=== PATIENT | male | born 1965 | race African-American/Black ===

== ENCOUNTER 2018-09-20 06:02 | Inpatient (IN) | payer BC ==
[2018-09-09 12:07] VITALS: BMI 38.5
[2018-09-20] MEDS ORDERED: oxyCODONE HCL 10 MG SUSTAINED ACTING TABLET PO ONE (06:49)
[2018-09-20] MEDS ORDERED: TRANEXAMIC ACID 1000 MG/10 ML VIAL IVPUSH ONE (06:49)
[2018-09-20] MEDS ORDERED: CELECOXIB 200 MG CAPSULE PO ONE (06:49)
[2018-09-20] MEDS ORDERED: GABAPENTIN 300 MG CAPSULE (FP) PO ONE (06:49)
[2018-09-20] MEDS ORDERED: CEFAZOLIN 2 GM in DEXTROSE 5%-WATER - 50 ML IVPB ONE (06:49)
[2018-09-20] MEDS ORDERED: PANTOPRAZOLE 40 MG TABLET (FP) PO ONE (06:50)
[2018-09-20] MEDS ORDERED: BUPIVACAINE LIPOSOME/PF (EXPAREL) 266 MG/20 ML VIAL ONE (07:26)
[2018-09-20] MEDS ORDERED: MIDAZOLAM HCL 2 MG/2 ML SINGLE DOSE VIAL ONE ×2 (07:26→09:56)
[2018-09-20] MEDS ORDERED: ceFAZolin SODIUM 1 GM VIAL ONE ×2 (07:27→09:55)
[2018-09-20] MEDS ORDERED: VANCOMYCIN 1,000 MG VIAL (RESTRICTED TO ID ONLY) ONE (07:27)
--- NOTE | 2018-09-20 07:58 | HP ---
Admitting History and Physical - Admission Chief Complaint: right knee osteoarthritis x years History of Present Illness: 53 year old male presents in regard to his right knee. Longstanding history of right knee osteoarthritis. Patient complains of pain, limited ROM, difficulty ambulating and difficulty with activities of daily living. Patient has failed conservative treatment options including PO medications, injections, exercise programs and activity modifications. At this point, patient would like to proceed with surgical intervention - right total knee arthroplasty, MAKOplasty. - Smoking History Smoking history: Current some day smoker Have you smoked in the past 12 months: Yes - Alcohol/Substance Use Hx Alcohol Use: Yes (SOCIAL) Home Medications - Allergies Allergies/Adverse Reactions: Allergies Allergy/AdvReac Type Severity Reaction Status Date / Time Penicillins Allergy Intermediate Rash Verified 09/09/18 12:00 - Home Medications Home Medications: Ambulatory Orders Flaxseed/Omega3,6,9/Fatty Acid [Eql Flaxseed Oil 1,200 mg Sfgl] 1 tab PO DAILY 11/15/13 Multivitamin [Multivitamins] 1 each PO DAILY 11/15/13 Diclofenac Sodium 100 mg PO DAILY 09/09/18 Tramadol HCl 50 mg PO Q6H PRN 09/09/18 Review of Systems - Review of Systems Musculoskeletal: reports: Crepitus (right knee), Decreased ROM (right knee), Joint Pain (right knee), Joint Swelling (right knee) Physical Examination Vital Signs: Vital Signs Temperature 97.5 F L 09/20/18 06:31 Pulse Rate 87 09/20/18 06:31 Respiratory Rate 15 09/20/18 06:31 Blood Pressure 151/96 09/20/18 06:31 O2 Sat by Pulse Oximetry (%) Constitutional: Yes: Well Nourished, No Distress Eyes: Yes: Conjunctiva Clear HENT: Yes: Atraumatic, Normocephalic Neck: Yes: Supple Cardiovascular: Yes: Regular Rate and Rhythm Respiratory: Yes: Regular Gastrointestinal: Yes: Soft ...Rectal Exam: Yes: Deferred Musculoskeletal: Yes: Joint Stiffness (right knee), Joint Swelling (right knee) Assessment/Plan 53 year old male presents in regard to his right knee. Longstanding history of right knee osteoarthritis. Patient complains of pain, limited ROM, difficulty ambulating and difficulty with activities of daily living. Patient has failed conservative treatment options including PO medications, injections, exercise programs and activity modifications. At this point, patient would like to proceed with surgical intervention - right total knee arthroplasty, MAKOplasty. Pros, cons, risks, benefits and alternatives of a right total knee arthroplasty , MAKOplasty were discussed with the patient at length. Patient confirms his understanding and consents to proceed with a right total knee arthroplasty, MAKOplasty.
[2018-09-20] MEDS ORDERED: ROPIVICAINE 0.2%/MORPH PF/KETOROLAC - 51ML DISP.SYRINGE IA ONE ×2 (08:11→10:19)
[2018-09-20] MEDS ORDERED: ePHEDrine SULFATE 50 MG/1 ML AMPULE ONE ×2 (09:13→09:46)
[2018-09-20] MEDS ORDERED: ROCURONIUM BROMIDE 50 MG/5 ML VIAL ONE (09:49)
[2018-09-20] MEDS ORDERED: ONDANSETRON 4 MG/2 ML VIAL ONE (09:55)
[2018-09-20] MEDS ORDERED: TRANEXAMIC ACID 1000 MG/10 ML VIAL ONE (09:55)
[2018-09-20] MEDS ORDERED: DEXAMETHASONE SOD PHOSPHATE 4 MG/1 ML VIAL ONE (09:55)
[2018-09-20] MEDS ORDERED: TRANEXAMIC ACID 1000 MG/10 ML VIAL IVPB ONE (10:18)
[2018-09-20] MEDS ORDERED: VANCOMYCIN 1,000 MG VIAL (RESTRICTED TO ID ONLY) IVPB ONE (10:19)
[2018-09-20] MEDS ORDERED: PROPOFOL 20 ML ONE (11:23)
[2018-09-20] MEDS ORDERED: SUCCINYLCHOLINE CHLORIDE 200 MG/10 ML VIAL ONE (13:47)
[2018-09-20] MEDS ORDERED: KETOROLAC TROMETHAMINE 30 MG/1 ML VIAL ONE (14:17)
[2018-09-20] MEDS ORDERED: ONDANSETRON 4 MG/2 ML VIAL IVPUSH PRN ×2 (14:17→15:00)
[2018-09-20] MEDS ORDERED: oxyCODONE HCL 5 MG TABLET PO PRN (14:17)
[2018-09-20] MEDS ORDERED: PROMETHAZINE HCL 25 MG/1 ML VIAL IVPUSH PRN (14:17)
[2018-09-20] MEDS ORDERED: ACETAMINOPHEN INJECTION 100 ML IVPB ONE (14:18)
[2018-09-20] MEDS ORDERED: traMADol HCL 50 MG TABLET ONE (14:18)
[2018-09-20] MEDS ORDERED: ACETAMINOPHEN 1000 MG/100 ML VIAL (NON FORMULARY) IVPB ONE ×2 (14:34→14:56)
--- NOTE | 2018-09-20 14:51 | OP ---
Operative Note - Note: Operative Date: 09/20/18 Pre-Operative Diagnosis: right knee OA Operation: Right ROBERT TKA Post-Operative Diagnosis: Same as Pre-op Surgeon: Ru Jenkins Designer/Writer: Barbara Wynn Anesthesia: Spinal Estimated Blood Loss (mls): 200
[2018-09-20] MEDS ORDERED: oxyCODONE HCL 5 MG TABLET ONE (14:53)
[2018-09-20] MEDS: oxyCODONE HCL 5 MG TABLET PO PRN (14:54)
[2018-09-20] MEDS ORDERED: LACTATED RINGERS SOLUTION 1,000 ML IV SCH (15:00)
[2018-09-20] MEDS ORDERED: MAG HYDROX/AL HYDROX/SIMETH 30 ML UNIT-DOSE CUP PO PRN (15:00)
[2018-09-20] MEDS ORDERED: MAGNESIUM HYDROX 2400MG/30ML ORAL SUSPENSION 30 ML CUP PO PRN (15:00)
[2018-09-20] MEDS ORDERED: oxyCODONE HCL 5 MG TABLET PO STA (17:17)
[2018-09-20] MEDS: ACETAMINOPHEN 325 MG TABLET (FP) PO SCH ×2 (17:33→19:50)
[2018-09-20] MEDS: CEFAZOLIN 2 GM/D5W 2 GM/50 ML ML IVPB SCH (17:39)
[2018-09-20] MEDS ORDERED: DEXAMETHASONE SOD PHOSPHATE 10 MG/1 ML VIAL IVPB ONE (20:00)
[2018-09-20] MEDS: SENNOSIDES/DOCUSATE COMBO (SENNA PLUS) TABLET (UD) PO SCH (21:23)
[2018-09-20] MEDS: ASCORBIC ACID 500 MG TABLET (FP) PO SCH (21:23)
[2018-09-20] MEDS: CELECOXIB 200 MG CAPSULE PO SCH (21:23)
[2018-09-20] MEDS: GABAPENTIN 300 MG CAPSULE (FP) PO SCH (21:23)
[2018-09-20] MEDS: traMADol HCL 50 MG TABLET PO SCH (21:24)
[2018-09-20] MEDS: oxyCODONE HCL 10 MG SUSTAINED ACTING TABLET PO SCH (21:24)
[2018-09-20] MEDS: KETOROLAC TROMETHAMINE 30 MG/1 ML VIAL IVPUSH SCH (21:25)
[2018-09-21] MEDS: ACETAMINOPHEN 325 MG TABLET (FP) PO SCH ×4 (02:15→19:44)
[2018-09-21] MEDS: CEFAZOLIN 2 GM/D5W 2 GM/50 ML ML IVPB SCH (02:15)
[2018-09-21] MEDS: traMADol HCL 50 MG TABLET PO SCH ×4 (02:16→21:12)
[2018-09-21] MEDS: KETOROLAC TROMETHAMINE 30 MG/1 ML VIAL IVPUSH SCH ×2 (02:16→08:22)
[2018-09-21] MEDS: oxyCODONE HCL 5 MG TABLET PO PRN ×4 (02:37→19:45)
[2018-09-21] MEDS: ASPIRIN 325 MG TABLET PO SCH (08:21)
[2018-09-21 08:26] LABS: ANION GAP 10 MMOL/L (8-16); BLOOD UREA NITROGEN 23 mg/dl (7-18); CALCIUM 8.6 mg/dl (8.5-10); CHLORIDE 96 mmol/L (98-107); CO2 25 mmol/L (21-32); CREATININE 1.4 mg/dl (0.55-1.3); GLUCOSE,RANDOM 145 mg/dl (74-106); POTASSIUM 4.6 mmol/L (3.5-5.1); SODIUM 131 mmol/L (136-145)
[2018-09-21 08:30] LABS: HEMATOCRIT 33.4 % (35.4-49); HEMOGLOBIN 11.1 GM/dl (11.7-16.9); MCH 28.8 pg (25.7-33.7); MCHC 33.1 g/dl (32.0-35.9); MEAN CELL VOLUME 86.9 fl (80-96); MEAN PLT VOLUME 8.9 fl (7.5-11.1); PLATELET COUNT 258 K/MM3 (134-434); RBC 3.84 M/mm3 (4.00-5.60); RDW 13.7 % (11.9-15.9)
[2018-09-21] MEDS: ASCORBIC ACID 500 MG TABLET (FP) PO SCH ×2 (09:32→21:13)
[2018-09-21] MEDS: MULTIVITAMINS (DAILY MVI) TABLET (FP) PO SCH (09:33)
[2018-09-21] MEDS: CELECOXIB 200 MG CAPSULE PO SCH (09:33)
[2018-09-21] MEDS: GABAPENTIN 300 MG CAPSULE (FP) PO SCH ×2 (09:33→21:11)
[2018-09-21] MEDS: PANTOPRAZOLE 40 MG TABLET (FP) PO SCH (09:33)
[2018-09-21] MEDS: SENNOSIDES/DOCUSATE COMBO (SENNA PLUS) TABLET (UD) PO SCH ×2 (09:35→21:13)
[2018-09-21] MEDS: oxyCODONE HCL 10 MG SUSTAINED ACTING TABLET PO SCH ×2 (09:36→21:11)
[2018-09-22] MEDS: oxyCODONE HCL 5 MG TABLET PO PRN ×2 (01:23→13:17)
[2018-09-22] MEDS: ACETAMINOPHEN 325 MG TABLET (FP) PO SCH ×2 (03:19→08:30)
[2018-09-22] MEDS: traMADol HCL 50 MG TABLET PO SCH ×2 (03:20→09:27)
[2018-09-22 06:18] VITALS: BP 157/77; PULSE 99; TEMP 98.3
[2018-09-22 07:37] LABS: HEMATOCRIT 30.5 % (35.4-49); MCH 28.7 pg (25.7-33.7); MCHC 32.9 g/dl (32.0-35.9); MEAN CELL VOLUME 87.4 fl (80-96); MEAN PLT VOLUME 9.2 fl (7.5-11.1); PLATELET COUNT 213 K/MM3 (134-434); RBC 3.49 M/mm3 (4.00-5.60); RDW 13.6 % (11.9-15.9); WHITE BLOOD COUNT 14.1 K/mm3 (4.0-10.8)
--- NOTE | 2018-09-22 08:02 | PN ---
Progress Note (short form) - Note Progress Note: Pt seen and examined last night. Doing well. AVSS Selected Entries 09/21/18 09/22/18 09/22/18 22:00 01:27 06:00 Temperature 98.2 F 98 F 98.3 F Pulse Rate 96 H 98 H 99 H Respiratory 20 18 18 Rate Blood Pressure 145/88 150/80 157/77 O2 Sat by Pulse 99 Oximetry (%) Oxygen Delivery Room Air Method Laboratory Tests 09/21/18 09/21/18 09/22/18 07:07 07:07 06:42 WBC 17.0 H Pending Hgb 11.1 L Pending Hct 33.4 L Pending Sodium 131 L Potassium 4.6 Chloride 96 L Carbon Dioxide 25 Anion Gap 10 BUN 23 H Creatinine 1.4 H Creat Clearance w eGFR 52.81 Random Glucose 145 H Calcium 8.6 Gen: NAD RLE: c/d/i, NVID A/P 53yo male s/p R ROBERT TKA PT/OOB D/C home Thursday
[2018-09-22] MEDS: ASPIRIN 325 MG TABLET PO SCH (08:05)
--- NOTE | 2018-09-22 08:09 | DS ---
Physical Examination Vital Signs: Vital Signs Temperature 98.3 F 09/22/18 06:00 Pulse Rate 99 H 09/22/18 06:00 Respiratory Rate 18 09/22/18 06:00 Blood Pressure 157/77 09/22/18 06:00 O2 Sat by Pulse Oximetry (%) 99 09/21/18 22:00 Labs: CBC, BMP 09/21/18 07:07 Discharge Summary Reason For Visit: RIGHT KNEE OSTEOARTHRITIS Current Active Problems Osteoarthritis of right knee (Acute) Unilateral primary osteoarthritis, right knee (Acute) Procedures: Principal: right ROBERT TKA Hospital Course: Admitted for elective surgery. Procedure performed without complications. Pt received postoperative antibiotic prophylaxis and DVT ppx. Ambulated with physical therapy. Stable for discharge home with outpatient followup. Condition: Stable - Instructions Diet, Activity, Other Instructions: Dr. Jenkins - Knee Replacement Instructions Keep the Aquacel dressing on until removed by Dr. Jenkins in 10-14 days - it is antibacterial and waterproof and you can shower with it on. Call the office for a follow-up appointment with Dr. Jenkins in 10-14 days. Take one Aspirin 325mg daily for 6 weeks to prevent blood clots in your legs. Take one Pantoprazole 40mg daily for 6 weeks to protect against heartburn and ulcers. Take Cephalexin (antibiotic) 3x/day for 10 days to help prevent skin infection. Take Celebrex 200mg twice daily for 30 days to reduce swelling and inflammation. Take a multivitamin, stool softener, and extra Vitamin C supplement daily. For pain: *Mild pain (1-3/10): Take 1 Tramadol tablet every 4 hours as needed. Moderate pain (4-6/10): Take 1 Tramadol tablet and 1 Percocet tablet every 4 hours as needed. Severe pain (7-10/10): Take 1 Tramadol tablet and 2 Percocet tablets every 4 hours as needed. Activity: You can put as much weight on the operative leg as you want. Right after you get home, there will be a physical therapist coming to your house to help you walk around and bend/straighten your knee. After your follow-up appointment, you will be sent for more intensive outpatient physical therapy which will include machines and equipment that the home therapist cannot bring to your house. Always use a walker or cane for balance and to prevent falls. Expect to see swelling/bruising from the operative site all the way down to your toes. Wear the compression stocking on the operative side during the day to minimize how much swelling there is in your foot/ankle. Don't wear the stocking at night. You don't have to wear a stocking on the other side. Disposition: [facility]NS/HOME HEALTH CARE - Home Medications Comprehensive Discharge Medication List: Ambulatory Orders Flaxseed/Omega3,6,9/Fatty Acid [Eql Flaxseed Oil 1,200 mg Sfgl] 1 tab PO DAILY 11/15/13 Multivitamin [Multivitamins] 1 each PO DAILY 11/15/13 Ascorbic Acid [Vitamin C -] 500 mg PO BID tablet 09/22/18 Aspirin [ASA -] 325 mg PO DAILY@0800 tablet 09/22/18 Celecoxib [CeleBREX -] 200 mg PO BID #60 capsule 09/22/18 Cephalexin Monohydrate [Keflex -] 500 mg PO TID #30 capsule 09/22/18 Multivitamins [Multivit ([facility] Formul[facility])] 1 tab PO DAILY tab 09/22/18 Oxycodone HCl/Acetaminophen [Percocet 5-325 mg Tablet] 1 - 2 tab PO Q4H PRN #60 tablet MDD 10 09/22/18 Pantoprazole Sodium [Protonix -] 40 mg PO DAILY #40 tablet.ec 09/22/18 Sennosides/Docusate Sodium [Pericolace -] 2 tablet PO BID tablet 09/22/18 traMADol HCL [Ultram -] 50 mg PO Q4H PRN #42 tablet MDD 6 09/22/18
[2018-09-22] MEDS: PANTOPRAZOLE 40 MG TABLET (FP) PO SCH (09:24)
[2018-09-22] MEDS: oxyCODONE HCL 10 MG SUSTAINED ACTING TABLET PO SCH (09:29)
[2018-09-22] MEDS: GABAPENTIN 300 MG CAPSULE (FP) PO SCH (09:29)
[2018-09-22] MEDS: SENNOSIDES/DOCUSATE COMBO (SENNA PLUS) TABLET (UD) PO SCH (09:30)
[2018-09-22] MEDS: MULTIVITAMINS (DAILY MVI) TABLET (FP) PO SCH (09:30)
[2018-09-22] MEDS: ASCORBIC ACID 500 MG TABLET (FP) PO SCH (09:30)
--- NOTE | 2018-09-22 13:40 | PATH ---
Surgical Pathology Report Patient Name: ANUSHA SILVESTRE Med. Rec. #: [id number] /Age/Gender: 1965 (Age: 53) / M Account: [id number] Location: [facility] MED-SURG Taken: 09/20/2018 Received: 09/20/2018 Reported: 09/22/2018 Physicians: Ru Jenkins M.D. Specimen(s) Received RIGHT KNEE BONE Clinical History Right knee osteoarthritis Final Diagnosis BONE AND SOFT TISSUE, RIGHT KNEE, REPLACEMENT: DEGENERATIVE JOINT DISEASE. Electronically Signed Amilcar Page M.D. Gross Description Received in formalin labeled "right knee bone," is a 15.0 x 12.5 x 2.0 cm aggregate of multiple portions of bone and soft tissue, consistent with knee bones. There are multiple areas of eburnation present, measuring up to 2.4 cm in greatest dimension. The remaining articular surfaces are quintanilla-yellow and diffusely nodular and granular. The underlying trabecular bone is yellow and hard. Basket Patcher sections are submitted in one cassette, following decalcification. /09/21/2018 [facility]09/21/2018
--- NOTE | 2018-10-21 11:40 | SPEC ---
DATE OF OPERATION: 09/20/2018 PREOPERATIVE DIAGNOSIS: Right knee osteoarthritis. POSTOPERATIVE DIAGNOSIS: Right knee osteoarthritis. PROCEDURE: Right total knee replacement with MAKOplasty robotic navigation. ATTENDING SURGEON: Lisa Kessler MD MAILING MACHINE OPERATOR: REX Marrufo ANESTHESIA: Spinal plus sedation. ESTIMATED BLOOD LOSS: 200 mL. COMPLICATIONS: None. DISPOSITION: The patient was transferred to the PACU in stable condition. IMPLANTS USED: [place] Triathlon size 8 femoral component, size 7 tibial component with 50-mm stem, 13-mm total stabilized polyethylene component. INDICATIONS: This is a 53-year-old male who presented to the office with severe right knee pain. He was seen and examined by Dr. Kessler and diagnosed with severe right knee osteoarthritis. The patient was initially treated nonoperatively with injections, medications and physical therapy but continued to have severe pain and ambulatory dysfunction. He was therefore indicated for a right total knee replacement. The risks, benefits and alternatives to the procedure were explained to the patient in great detail and he elected to proceed with the surgery. On the day of surgery, the patient was taken to the operating room and placed on the OR table. Spinal anesthesia was administered by the anesthesiologist. The patient was then positioned supine on the table and all bony prominences were padded. The knee was then prepped and draped in the usual sterile fashion and intravenous antibiotics were given for infection prophylaxis. A surgical timeout was then performed with the team, and the patients identity, procedure, side, availability of implants, and the administration of antibiotics was confirmed. With the knee flexed, a midline incision was made and carried down through the subcutaneous fat to the underlying retinaculum. A medial parapatellar arthrotomy was performed. This was followed by a subperiosteal dissection of the tissue off the proximal, medial tibia. A portion of fat pad was removed from under the patellar tendon, and a small portion of fat was excised off the distal supracondylar femur. Electrocautery and an Aquamantys bipolar sealing device were used to achieve hemostasis. The knee was then flexed further and the anterior horn of the lateral meniscus was released from the midline. Next, the anterior and posterior cruciate ligaments were transected. Grade 4 changes were noted diffusely throughout the knee. Femoral and tibial checkpoints were then placed in the appropriate location using a mallet. Two parallel bicortical self-drilling pins were placed in the tibial diaphysis after making stab incisions and bluntly dissecting down to bone. Two pins were then placed in the distal supracondylar femur. The iKaaz navigation arrays were then attached to both the femoral and tibial pins and the lower extremity was then registered to the robotic navigation device using various joint movements, as well as inputting several dozen reference points. The knee was then taken through a full range of motion with a corrective force applied. Alignment in varus/valgus as well as flexion/extension and soft tissue balance was measured in various positions. The navigation device showed a numerical and graphic representation of the soft tissue balance. The components were repositioned virtually using the software until optimal soft tissue balance was achieved on screen. Once this was accomplished, the final plan was saved and sent to the robot. Self-retaining retractors were then placed at the joint line for exposure and protection of the collateral ligaments. The robot was brought into the sterile field and registered with the navigation device. The robotic arm with attached oscillating saw blade was then used to perform femoral and tibial bone cuts as per the saved software plan. The femoral box cut was made using the appropriately sized manual cutting guide. The knee was then irrigated. Trial components were placed and the knee was taken through a full range of motion to assess soft tissue balance and alignment. The range of motion was found to be excellent and the soft tissue balance was optimal and according to plan. The knee was then put into extension and the patella everted. The synovium around the patella was circumscribed with electrocautery. A caliper was used to measure the patellar thickness and a saw was then used to resect the patella at the chondro-osseous junction. The cut surface was then sized and drilled for the appropriate patellar button, with care taken to medialize it. A trial patella was then placed and the knee was again taken through a full range of motion. The knee was found to have both good balance and good patellar tracking. All of the components were removed except the tibial base plate. The appropriate instrumentation was used to drill and punch the proximal tibia for the keel of the final component. All bony surfaces were then cleaned with pulsatile lavage and dried. Bone cement was then prepared on the back table, and final components were cemented in place in the usual fashion. Extruded cement was removed. The polyethylene trial was placed, the knee was put into extension, and axial pressure was applied for compression while the cement hardened. The patellar button was similarly cemented into place. Once the cement had hardened, the knee was taken through a full range of motion to assess stability, balance, and patellar tracking. This was found to be optimal and the trial polyethylene was exchanged for the appropriately sized real implant. The wound was then thoroughly irrigated with normal saline. A 3-minute dilute Betadine lavage was performed. The knee was again irrigated using a pulsatile lavage device. A periarticular injection was used to locally infiltrate the capsular tissues surrounding the implant and prosthesis. Then No. 1 Polysorb and 0 V-Loc 180 barbed sutures were used to close the arthrotomy. Then No. 1 Polysorb and 2-0 V-Loc 90 sutures were used in the subcutaneous tissues. Then 4-0 undyed Vicryl and Dermabond skin adhesive was used to close the stab incisions made for the navigation pins. The skin was closed using both 3-0 V-Loc 90 suture in a running subcuticular fashion and Dermabond skin adhesive. Once this was completed a sterile Aquacel dressing and compressive Jf-wrap was applied. The patient was then awakened and taken to the PACU in stable condition. LISA KESSLER M.D. [id number]
== END 2018-09-22 15:58 | disposition home health service (06) | DRG 470 ==
LOC: FM/S 06:02
PROVIDERS: ADMIT Student in an Organized Health Care Education/Training Program; ATTEND Student in an Organized Health Care Education/Training Program
PROC: 8E0Y0CZ Robotic Assisted Procedure of Lower Extremity, Open Approach (ICD-10-PCS; 2018-09-20)
PROC: 0SRC0J9 Replacement of Right Knee Joint with Synthetic Substitute, Cemented, Open Approach (ICD-10-PCS; principal; 2018-09-20 10:12)
DX: M17.11 Unilateral primary osteoarthritis, right knee (principal); F17.210 Nicotine dependence, cigarettes, uncomplicated
CPT/HCPCS: 36415; 73560-TC-RT-FY; 80048; 85027; 88304-TC; 88311-TC; 94760; 97116-GP; 97162-GP; J0131; J1100